=== PATIENT | female | born 1970 | race American Indian/Alaskan Native ===

== ENCOUNTER 2016-12-18 21:23 | Emergency (ER) | payer SELFPAY ==
[2016-12-18 21:35] VITALS: RESP 16; TEMP 98.1
--- NOTE | 2016-12-18 22:28 | ED PDOC ---
HPI: General Adult Time Seen by Provider: 12/18/16 21:56 Chief Complaint (Nursing): Respiratory Distress Chief Complaint (Provider): SOB History Per: Patient Additional Complaint(s): 46-year-old female presents to emergency department with shortness of breath that started 2 days ago. Patient is status post facial reconstructive surgery 2 days ago. She has felt anxious and has had shortness of breath since the procedure. The patient denies history of anxiety. She feels as if the anesthesia from the surgery is still in her body causing her to feel anxious and short of breath as well as very groggy. Patient lives in [place] but flew here a few days ago for the surgery. She denies any chest pain, no fever or chills, no cough. Patient denies similar reaction to anesthesia in the past. Patient denies any suicidal or homicidal ideation. Past Medical History Reviewed: Historical Data, Nursing Documentation, Vital Signs Vital Signs: Last Vital Signs Temp 98.1 F 12/18/16 21:26 Pulse 83 12/19/16 03:40 Resp 16 12/19/16 03:40 BP 156/93 H 12/19/16 03:40 Pulse Ox 100 12/19/16 04:18 - Medical History PMH: No Chronic Diseases - Surgical History Surgical History: (x 2) Other surgeries: facial reconstructive surgery 2 days ago, rhinoplasty, breast implants - Family History Family History: States: No Known Family Hx - Living Arrangements Living Arrangements: With Family - Social History Current smoker - smoking cessation education provided: No Drugs: Denies - Home Medications Home Medications: Ambulatory Orders Medication Instructions Recorded amLODIPine [Norvasc] 10 mg PO DAILY #15 tab 12/19/16 - Allergies Allergies/Adverse Reactions: Allergies Allergy/AdvReac Type Severity Reaction Status Date / Time No Known Allergies Allergy Verified 12/18/16 21:26 Review of Systems ROS Statement: Except As Marked, All Systems Reviewed And Found Negative Constitutional: Negative for: Fever Cardiovascular: Negative for: Chest Pain Respiratory: Positive for: Shortness of Breath, SOB with Exertion. Negative for : Wheezing Gastrointestinal: Negative for: Nausea, Vomiting Neurological: Negative for: Headache, Dizziness Physical Exam - Reviewed Nursing Documentation Reviewed: Yes Vital Signs Reviewed: Yes - Physical Exam Appears: Positive for: Well, Non-toxic, No Acute Distress Skin: Positive for: Normal Color. Negative for: Rash Eye Exam: Positive for: Periorbital swelling (Postoperative periorbital swelling and ecchymosis bilaterally with nontender orbits bilaterally), Other ( Diffuse facial swelling is noted, Steri-Strips in place to bilateral maxillary regions, no cellulitis noted) ENT: Positive for: Other (airway patent, uvula midline). Negative for: Nasal Congestion, Pharyngeal Erythema Cardiovascular/Chest: Positive for: Regular Rate, Rhythm Respiratory: Positive for: Decreased Breath Sounds. Negative for: Accessory Muscle Use, Rhonchi, Wheezing, Respiratory Distress Gastrointestinal/Abdominal: Positive for: Normal Exam, Soft. Negative for: Tenderness Back: Negative for: L CVA Tenderness, R CVA Tenderness Extremity: Negative for: Pedal Edema, Calf Tenderness Neurologic/Psych: Positive for: Alert, Oriented - Laboratory Results Result Diagrams: 12/18/16 23:53 12/18/16 23:53 - ECG Interpretation Of ECG: NSR 86 bpm, no acute finding, reviewed by PA and ED attending. O2 Sat by Pulse Oximetry: 100 Pulse Ox Interpretation: Normal - Other Rad CT chest X-Ray: Read By Radiologist X-Ray Interpretation: no PE, no acute finding Medical Decision Making Medical Decision Makin46 year old with shortness of breath s/p surgery 2 days ago Plan: CBC CMP Trop EKG CT chest IVF PO xanax 0.25 mg Albuterol x 1 via neb Patient aware of all diagnostic test results. She feels much better after medications were given. Patient's blood pressure remains persistently elevated, 5 mg Norvasc tablet administered. BP came down to 156/93 after 5 mg Norvasc, additional 5 mg tablet administered. Patient lives in [place] and plans on following up with her PMD this coming Thursday. Rx norvasc 10 mg given. Patient was instructed to take this med as directed and follow up with PMD on Thursday. Disposition - Clinical Impression Clinical Impression: Anxiety, Hypertension - Patient ED Disposition Is Patient to be Admitted: No Counseled Patient/Family Regarding: Studies Performed, Diagnosis, Need For Followup, Rx Given - Disposition Referrals: FAMILY PROVIDER,NO [Primary Care Provider] - Disposition: Routine/Home Disposition Time: : Condition: IMPROVED Additional Instructions: Take rx meds as directed. Follow up with your primary care doctor as soon as you return home. Prescriptions: amLODIPine [Norvasc] 10 mg PO DAILY #15 tab Instructions: Hypertension (ED), Anxiety (ED) Results - Lab Results Lab Results: 12/18/16 23:53 WBC 5.0 RBC 3.59 L Hgb 10.4 L Hct 32.3 L MCV 90.0 MCH 29.0 MCHC 32.2 L RDW 16.8 H Plt Count 325 MPV 6.8 L Neut % (Auto) 70.7 Lymph % (Auto) 17.3 L [place] % (Auto) 10.6 H Eos % (Auto) 1.0 Baso % (Auto) 0.4 Neut # 3.5 Lymph # 0.9 L [place] # 0.5 Eos # 0.0 Baso # 0.0 Sodium 143 Potassium 4.2 Chloride 105 Carbon Dioxide 26 Anion Gap 16 BUN 10 Creatinine 0.7 Est GFR ( Amer) > 60 Est GFR (Non-Af Amer) > 60 Random Glucose 89 Calcium 8.9 Total Bilirubin 0.3 AST 32 ALT 19 Alkaline Phosphatase 52 Troponin I < 0.0120 Total Protein 6.9 Albumin 3.8 Globulin 3.1 Albumin/Globulin Ratio 1.2
[2016-12-18] MEDS ORDERED: Sodium Chloride 0.9% 1,000 ML IV STA (23:05)
[2016-12-18] MEDS ORDERED: Albuterol 0.083% Inhal Sol (2.5 mg/3 mL) UD INH STA (23:05)
[2016-12-18] MEDS ORDERED: Albuterol-Ipratrop 3 mg / 0.5 (3 ml) UD ONE (23:17)
[2016-12-18] MEDS ORDERED: Albuterol 0.083% Inhal Sol (2.5 mg/3 mL) UD ONE (23:22)
[2016-12-19 00:01] LABS: BASO % 0.4 % (0.0-2.0); HEMATOCRIT 32.3 % (34.0-47.0); LYMPH # 0.9 K/uL (1.0-4.3); LYMPH % 17.3 % (20.0-40.0); MEAN CORPUSCULAR HGB CONC 32.2 g/dL (33.0-37.0); MEAN PLATELET VOLUME 6.8 fl (7.2-11.7); MONO # 0.5 K/uL (0.0-0.8); MONO % 10.6 % (0.0-10.0); NEUT # 3.5 K/uL (1.8-7.0); NEUT % 70.7 % (50.0-75.0); RED CELL DISTRIBUTION WIDTH 16.8 % (11.5-14.5)
[2016-12-19 00:29] LABS: ALB/GLOB RATIO 1.2 (1.0-2.1); ALKALINE PHOSPHATASE 52 U/L (38-126); ALT/SGPT 19 U/L (9-52); AST/SGOT 32 U/L (14-36); BILIRUBIN,TOTAL 0.3 mg/dl (0.2-1.3); BLOOD UREA NITROGEN 10 mg/dl (7-17); CALCIUM 8.9 mg/dL (8.4-10.2); CARBON DIOXIDE 26 mmol/L (22-30); CHLORIDE 105 mmol/L (98-107); GFR AFRICAN-AMERICAN > 60; GLUCOSE,RANDOM 89 mg/dL (65-105); POTASSIUM 4.2 MMOL/L (3.6-5.0); SODIUM 143 mmol/l (132-148); TOTAL PROTEIN 6.9 G/DL (6.3-8.2)
[2016-12-19] MEDS ORDERED: Sodium Chloride 0.9% 100 ML ONE (01:16)
--- NOTE | 2016-12-19 02:38 | CT ---
EXAM: CT Angiography Chest With Intravenous Contrast CLINICAL HISTORY: 46 years old, female; Signs and symptoms; Shortness of breath; Prior surgery; Surgery date: Post-operative (0-2 days); Additional info: S/P surgery 2 days ago, shortness of breath TECHNIQUE: Axial computed tomographic angiography images of the chest with intravenous contrast using pulmonary embolism protocol. This CT exam was performed using one or more of the following dose reduction techniques: automated exposure control, adjustment of the mA and/or kV according to patient size, and/or use of iterative reconstruction technique. MIP reconstructed images were created and reviewed. Coronal and sagittal reformatted images were created and reviewed. CONTRAST: 99 mL of [id number] administered intravenously. EXAM DATE/TIME: 12/18/2016 11:05 PM COMPARISON: No relevant prior studies available. FINDINGS: Bilateral breast implants. No pulmonary embolism. No aortic dissection or aneurysm. No pleural or pericardial effussions. Minimal bibasilar atelectasis/scarring. There is residual thymic tissue in the anterior mediastinum. IMPRESSION: No acute findings.
[2016-12-19 03:41] VITALS: PULSE 83
[2016-12-19 05:06] VITALS: BP 164/92
[2016-12-19 05:13] VITALS: O2SAT 100
--- NOTE | 2016-12-19 19:27 | CARD ---
APPROVED REPORT EKG Measurement Heart [id number] <Conclusion> Normal sinus rhythm Incomplete right bundle branch block Borderline ECG
--- NOTE | 2016-12-19 19:28 | CARD ---
APPROVED REPORT EKG Measurement Heart [id number] <Conclusion> Normal sinus rhythm Normal ECG
== END 2016-12-19 05:39 | disposition home or self-care (01) ==
LOC: H.ER 21:23
DX: F41.9 Anxiety disorder, unspecified (principal); I10 Essential (primary) hypertension; R06.02 Shortness of breath
CPT/HCPCS: 71275; 80053; 81025; 84484; 85025; 93005; 96360; 99285; J7040

== ENCOUNTER 2016-12-20 02:08 | Emergency (ER) | payer SELFPAY ==
[2016-12-20 02:14] VITALS: PULSE 87; RESP 20; TEMP 97.8; O2SAT 100
--- NOTE | 2016-12-20 02:22 | ED PDOC ---
HPI: General Adult Time Seen by Provider: 12/20/16 02:20 Chief Complaint (Nursing): Anxiety Chief Complaint (Provider): anxiety History Per: Patient Additional Complaint(s): Patient presents to emergency Department with anxiety. She was seen in ED last night for anxiety and shortness of breath and is 3 days post-op from facial plastic surgery. Patient had CT of chest done along with EKG and labs and workup was negative. Patient was given 25 mg PO Xanax last night and this did help her anxiety. Throughout the day today patient states that anxiety worsened prompting second visit tonight. Patient denies suicidal or homicidal ideation. Patient denies shortness of breath or chest pain upon arrival. Past Medical History Reviewed: Historical Data, Nursing Documentation, Vital Signs Vital Signs: Last Vital Signs Temp 97.8 F 12/20/16 02:10 Pulse 87 12/20/16 02:10 Resp 20 12/20/16 02:10 BP 156/114 H 12/20/16 02:48 Pulse Ox 100 12/20/16 02:22 - Medical History PMH: No Chronic Diseases - Surgical History Surgical History: (x 2) Other surgeries: breast augmentation, facial reconstructive surgery, rhinoplasty - Family History Family History: States: No Known Family Hx - Living Arrangements Living Arrangements: With Family - Social History Current smoker - smoking cessation education provided: No Alcohol: None Drugs: Denies - Home Medications Home Medications: Ambulatory Orders Medication Instructions Recorded amLODIPine [Norvasc] 10 mg PO DAILY #15 tab 12/19/16 hydrOXYzine Pamoate [Vistaril] 25 mg PO ASDIR #8 cap 12/20/16 - Allergies Allergies/Adverse Reactions: Allergies Allergy/AdvReac Type Severity Reaction Status Date / Time No Known Allergies Allergy Verified 12/18/16 21:26 Review of Systems ROS Statement: Except As Marked, All Systems Reviewed And Found Negative Cardiovascular: Negative for: Chest Pain, Palpitations Respiratory: Negative for: Shortness of Breath, SOB with Exertion Psych: Positive for: Anxiety. Negative for: Suicidal ideation Physical Exam - Reviewed Nursing Documentation Reviewed: Yes Vital Signs Reviewed: Yes - Physical Exam Appears: Positive for: Well, Non-toxic, No Acute Distress Head Exam: Positive for: ATRAUMATIC, NORMAL INSPECTION Skin: Negative for: Rash ENT: Positive for: Other (mild post operative facial swelling) Cardiovascular/Chest: Positive for: Regular Rate, Rhythm Respiratory: Positive for: Normal Breath Sounds Neurologic/Psych: Positive for: Alert, Oriented, Mood/Affect (anxious) - ECG O2 Sat by Pulse Oximetry: 100 Pulse Ox Interpretation: Normal Medical Decision Making Medical Decision Makin46 year old with anxiety Defense Attorney saw patient in ED yesterday and she had labs, CT chest and EKG done, work up negative. Plan: Crisis consult As per crisis counselor and psychiatrist parking station attendant Dr. Markham, patient does not meet criteria for admission and is stable for discharge. Dr. Markham states to prescribe Vistaril to help patient with anxiety and sleep. Patient returns home to [place] on Thursday and was instructed to follow up with PMD. BP elevated, Patient was started on Norvasc 10 mg yesterday. She was advised to continue with this medication and follow-up with primary doctor upon returning home. Disposition - Clinical Impression Clinical Impression: Anxiety - Patient ED Disposition Is Patient to be Admitted: No Counseled Patient/Family Regarding: Diagnosis, Need For Followup, Rx Given - Disposition Referrals: [facility] [Outside] Disposition: Routine/Home Disposition Time: 03:42 Condition: STABLE Additional Instructions: Take rx meds as directed. Follow up AN[place]IONETTE with your doctor. Prescriptions: hydrOXYzine Pamoate [Vistaril] 25 mg PO ASDIR #8 cap Instructions: Anxiety (ED)
[2016-12-20 02:50] VITALS: BP 156/114
== END 2016-12-20 04:00 | disposition home or self-care (01) ==
LOC: H.ER 02:08
DX: F41.9 Anxiety disorder, unspecified (principal); R06.02 Shortness of breath